=== PATIENT | female | born 1970 | race Caucasian/White ===

== ENCOUNTER 2018-03-17 09:36 | Day surgery (SDC) | payer OTHER, MEDICAID ==
[2018-03-17] MEDS ORDERED: D5 LR 1000 ML 1,000 ML IV ONE (09:48)
[2018-03-17] MEDS ORDERED: DIPRIVAN VIAL 20 ML ONE ×2 (10:42→11:05)
[2018-03-17 11:32] VITALS: BP 102/53
== END 2018-03-17 11:50 | disposition home or self-care (01) ==
LOC: SURG1 09:36
PROVIDERS: ATTEND Internal Medicine Gastroenterology
PROC: 0DJ08ZZ Inspection of Upper Intestinal Tract, Via Natural or Artificial Opening Endoscopic (ICD-10-PCS; principal; 2018-03-17 13:30)
PROC: 0DB68ZX Excision of Stomach, Via Natural or Artificial Opening Endoscopic, Diagnostic (ICD-10-PCS; principal; 2018-03-17 13:30)
PROC: 0DB88ZX Excision of Small Intestine, Via Natural or Artificial Opening Endoscopic, Diagnostic (ICD-10-PCS; principal; 2018-03-17 13:30)
DX: R10.13 Epigastric pain (principal); R11.2 Nausea with vomiting, unspecified; Z83.71 Family history of colonic polyps; K29.60 Other gastritis without bleeding; K31.7 Polyp of stomach and duodenum; K26.9 Duodenal ulcer, unspecified as acute or chronic, without hemorrhage or perforation; Z86.018 Personal history of other benign neoplasm
CPT/HCPCS: A4217; J3490; J7120